=== PATIENT | female | born 2000 | race Two or more races ===

== ENCOUNTER 2022-03-02 14:24 | Emergency (ER) | payer OTHER ==
[~2022-03-02] VITALS: Ht 162.6 cm; Wt 52.6 kg
--- NOTE | 2022-03-02 15:01 | NUR ---
CALLED POISON CONTROL [phone] PER [facility]: 4 HOURS OF OBSERVATION AT THIS POINT. RUN LABS ALSO, LOOK FOR TYLENOL AND ASA. SSRI DROWSINESS POSSIBLE HYPOTENSION, BRADYCARDIA, SYNCOPE. WITH SUPPORTIVE CARE.
[2022-03-02 15:27] LABS: BASOPHILS % (AUTO) 0.4 % (0.0-2.0); EOSINOPHILS % (AUTO) 0.3 % (0.0-6.0); HEMATOCRIT 45 % (33-45); HEMOGLOBIN 14.9 g/dL (11.5-14.8); LYMPHOCYTES # (AUTO) 1.4 K/uL (0.8-4.8); LYMPHOCYTES % (AUTO) 21.5 % (20.0-44.0); MEAN CORPUSCULAR HGB CONC 34 g/dl (31.0-36.0); MEAN CORPUSCULAR VOLUME 97 fL (82-100); MONOCYTES # (AUTO) 0.4 K/uL (0.1-1.30); MONOCYTES % (AUTO) 6.1 % (2.0-12.0); NEUTROPHILS # (AUTO) 4.8 K/uL (1.8-8.9); NEUTROPHILS % (AUTO) 71.7 % (43.0-81.0); PLATELET COUNT (AUTO) 278 K/uL (150-450); RED BLOOD CELL COUNT(AUTO) 4.59 MIL/uL (4.0-5.2); WHITE BLOOD COUNT (AUTO) 6.7 K/uL (4.3-11.0)
[2022-03-02] MEDS ORDERED: IV NS 0.9% 1,000 ML BAG IV ONE (15:30)
--- NOTE | 2022-03-02 15:36 | NUR ---
5150 HOLD DANGER TO SELF EFFECTIVE 1500 BY LAPJoe [id number]
--- NOTE | 2022-03-02 15:55 | NUR ---
unable to provide urine at this time
[2022-03-02 15:59] LABS: ALBUMIN 4.1 g/dL (3.4-5.0); BILIRUBIN,DIRECT 0.2 mg/dL (0.0-0.2); BILIRUBIN,TOTAL 0.5 mg/dL (0.2-1.0); CALCIUM, SERUM 9.3 mg/dL (8.5-10.1); CREATININE 0.9 mg/dL (0.6-1.3); POTASSIUM 3.8 mmol/L (3.5-5.1); TOTAL PROTEIN, SERUM 7.5 g/dL (6.4-8.2)
--- NOTE | 2022-03-02 18:12 | NUR ---
124/60 PR96 RR18 99%
--- NOTE | 2022-03-02 18:45 | NUR ---
urine sample obtained sent to lab
--- NOTE | 2022-03-02 18:58 | NUR ---
URINE SAMPLE COLLECTED AND SENT TO LAB
--- NOTE | 2022-03-02 19:01 | NUR ---
[facility] [phone]
[2022-03-02 19:32] LABS: BILIRUBIN,URINE NEGATIVE (NEGATIVE); COLOR,URINE YELLOW (YELLOW); LEUKOCYTE ESTERASE ,URINE NEGATIVE (NEGATIVE); NITRITE, URINE NEGATIVE (NEGATIVE); PROTEIN,URINE NEGATIVE (NEGATIVE); UGLUCOSE NEGATIVE (NEGATIVE); UROBILINOGEN,URINE 0.2 EU/dL (0.2)
--- NOTE | 2022-03-02 19:48 | NUR ---
COVID SWAB COLLECTED AND SENT TO LAB
[2022-03-02 20:01] LABS: WBC,URINE NONE SEEN /HPF (0-3)
[2022-03-02 20:03] LABS: BACTERIA,URINE Moderate /HPF (None Seen); RBC,URINE 0-2 /HPF (0-2); SQUAMOUS EPITHELIAL CELL,UR Few /HPF (None Seen)
--- NOTE | 2022-03-02 22:56 | NUR ---
PER POISON CONTROL RASHIDA, REPEAT LFT'S TO ENSURE NO UPWARD TRENDS. LAW MADE AWARE.
--- NOTE | 2022-03-02 23:22 | NUR ---
NICHOLAS CRISIS CLINICAN AT BEDSIDE FOR PSYCH EVAL
[2022-03-03 00:50] LABS: ALBUMIN 3.5 g/dL (3.4-5.0); BILIRUBIN,TOTAL 0.7 mg/dL (0.2-1.0); CALCIUM, SERUM 9.2 mg/dL (8.5-10.1); CREATININE 0.7 mg/dL (0.6-1.3); POTASSIUM 4.4 mmol/L (3.5-5.1); TOTAL PROTEIN, SERUM 6.6 g/dL (6.4-8.2)
--- NOTE | 2022-03-03 01:38 | NUR ---
PT AWAKE AND ALERT IN NO RESP DISTRESS. FAMILY AT BEDSIDE WITH PATIENT.
--- NOTE | 2022-03-03 08:30 | NUR ---
PT ABLE TO BE AWAKENED, VERBALLY RESPONSIVE, NOT IN ACUTE DISTRESS, A/O X4.
--- NOTE | 2022-03-03 12:47 | NUR ---
DR KEMP SEEN PT AT BEDSIDE
[2022-03-03] MEDS ORDERED: ARIPIPRAZOLE 5 MG TABLET PO SCH (13:00)
[2022-03-03] MEDS ORDERED: ARIPIPRAZOLE 2 MG TABLET ONE (13:03)
--- NOTE | 2022-03-03 17:32 | NUR ---
DINNER TRAY PROVIDED. TOLERATED WELL
--- NOTE | 2022-03-03 18:42 | NUR ---
SEEN BY DR KEMP, SUGGESTS WOOD CUT ENGRAVER GET INVOLVED, CALL SISTER, KEEP AN EYE ON THE PATIENT AND EVENTUALLY SEND BACK HOME. NOT TOO DANGEROUS TO BE PLACED ON 5250 HOLD PER MD.
--- NOTE | 2022-03-04 02:16 | NUR ---
PT SLEEPING COMOFRTABLY,ABLE TO MAKE NEEDS KNOWN. SITTER AT BEDSIDE.
--- NOTE | 2022-03-04 08:00 | NUR ---
ATTENTED NEED , PT IS STABLE .
--- NOTE | 2022-03-04 09:45 | NUR ---
FAXED CLINICALS TO [facility] INTAKE [phone] LAQUITA COOK.
--- NOTE | 2022-03-04 09:51 | NUR ---
CALLED [facility] [phone] CALL INTAKE NOT ACCEPTING MEDICAL FOR ADULTS.
--- NOTE | 2022-03-04 11:50 | NUR ---
KATTY faxed clinicals to [facility] ([address] [place] [address], , ), [facility] ( , ), [facility] ( , ). [facility] ( , ), and [facility] (Tel: , ).
--- NOTE | 2022-03-04 13:50 | NUR ---
Psychiatric evaluation Chief complaint: Overdose History of presenting illness: 21-year-old female who overdosed on multiple medications after feeling overwhelmed and useless. Upon my interview patient endorses symptoms of depression. She is under a lot of stress as she recently migrated from [facility] to stay with her sister in [place]. Apparently the sister worked and patient has not been very successful in finding a career. Patient reports daily depression with decreased sleep, anhedonia, suicidal ideations off and on, but no weight loss. Patient denies any current suicidal ideations and seems remorseful about her attempt. No other evidence of psychosis or bipolar. Past psychiatric history: Patient has been treated for depression with Prozac, Klonopin and hydroxyzine. He has been on these medicines for approximately 6 months. She has never been hospitalized before. Denies ever attempting suicide before. Past medical history: Nonsignificant Family history: Depression on the maternal side. No history of suicide. Social history: Patient is currently living with her sister in an apartment. She recently migrated from [facility]. He has very little support about from her sister. Denies any kind of substance abuse. UDS was negative. He is single. Mental status examination: Cooperative appropriate and goal-directed. She is well kempt and speaks in a relevant goal-directed fashion. Thought processes are goal directed. Thought content is negative for suicidal or homicidal ideations and negative for auditory or visual hallucinations or delusions. Mood is depressed. Affect is restricted and sad. Judgment is poor by history. Good by example. Insight is fair. She is alert and oriented x3. 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 Plan: #1 patient is currently denying suicidal or homicidal ideations. In my opinion she is not currently dangerous and does not have the resources to go to inpatient hospital. I have asked the social media marketing manager to contact the sister and see if we can come up with a plan. Patient feels comfortable and can be discharged home with a plan to possibly sending her back to her family for the short run. Patient already has access to healthcare through a community center. She is getting her Prozac and reports that he is getting counseling. I will add Abilify 5 mg nightly. Risk/benefits were discussed. Informed consent was obtained.
--- NOTE | 2022-03-04 14:36 | NUR ---
PT ACCEPTED AT [facility] UNDER DR LANG[place]ON, GOING TO [address].A NUMBER FOR REPORT [phone]
--- NOTE | 2022-03-04 14:40 | NUR ---
[facility] CALLED FOR TRANSPORT ETA 1600
--- NOTE | 2022-03-04 14:57 | NUR ---
REPORT GIVEN TO ELY ESCOBAR [facility] [phone] FOR SAVITA
[2022-03-04 15:50] VITALS: BP 121/76
--- NOTE | 2022-03-04 16:21 | NUR ---
Veronica bustillo in [facility] - 03/04/22 at 1638 by [facility] ARRIVED, PT TRANSFERRED TO [facility] IN STABLE CONDITION.
--- NOTE | 2022-03-04 16:21 | NUR ---
PATIENT PICKUP BY [facility] STAFF FOR TRANSFER TO [facility] IN A STABLE CONDITION CALM-COOPERATIVE.
== END 2022-03-03 16:00 ==
LOC: ER 14:30
DX: R45.851 Suicidal ideations (principal); T43.592A Poisoning by other antipsychotics and neuroleptics, intentional self-harm, initial encounter; T43.222A Poisoning by selective serotonin reuptake inhibitors, intentional self-harm, initial encounter; T42.4X2A Poisoning by benzodiazepines, intentional self-harm, initial encounter; Y92.009 Unspecified place in unspecified non-institutional (private) residence as the place of occurrence of the external cause; Z20.822 Contact with and (suspected) exposure to COVID-19; R94.31 Abnormal electrocardiogram [ECG] [EKG]
CPT/HCPCS: 99285; 96360; 93005; 71045; 85025; 80048; 87086; 80076; 84703; 81001; 36415; 80053; 82962; 84702; 87426; 80143; 80320; 80307; J7030; C9803; G0480